=== PATIENT | female | born 1950 | race Caucasian/White ===

== ENCOUNTER 2019-09-29 20:48 | Observation (INO) | payer MEDICARE ==
[~2019-09-29] VITALS: Ht 162.6 cm; Wt 62.7 kg
--- NOTE | ~2019-09-29 | HEMODYNAMI ---
PATIENT:DARIO KLEIN MEDICAL RECORD: [id number] : 50 LOCATION:[address] ADMISSION DATE: 09/29/19 Generatedon:09/30/201915:45 Patient name: DARIO KLEIN Patient #: [id number] : 1950 Date of study: 09/30/2019 Page: Of Hemodynamic Procedure Report Patient Data Patient Demographics Procedure consent was obtained First Name: DARIO Gender: Female Last Name: LATOYA : 1950 Patient #: [id number] Age: 69 year(s) Race: Unknown SSN: [id number] Additional ID: [id number] Contact details Address: [address] [place] [address] State: [place] City: [place] Zip code: [address] Past Medical History Allergies: No known allergies Admission Admission Data Admission Date: 09/29/2019 Admission Time: 22:28 Room #: [facility] Lab Results Lab Result Date: 09/30/2019 Lab Result Time: 0:00 Biochemistry Name Units Result Min Max BUN mg/dl 25 --(----)-* 7 18 Creatinine mg/dl 0.9 --(-*--)-- 0.6 1.3 eGFR ml/min 66 *-(----)-- 90 120 NONAFRICAN CBC Name Units Result Min Max Hemoglobin g/dl 12.4 *-(----)-- 13.5 17.5 Procedure Procedure Types Cath Procedure Diagnostic Procedure C [facility] w/Coronaries Sedation Charges Moderate Sedation up to 30 minutes Procedure Description Procedure Date Procedure Date: 09/30/2019 Procedure Start Time: 15:34 Procedure End Time: 15:42 Procedure Staff Name Function Anibal Mojica MD Performing Physician Slime Mosquera RT Monitor Rachel Ly RT Scrub Lyubov Arcos RN Nurse Procedure Data Cath Procedure Fluoroscopy Diagnostic fluoroscopy Total fluoroscopy Time: 1 time: 1 min min Diagnostic fluoroscopy Total fluoroscopy dose: 131 dose: 131 mGy mGy Contrast Material Contrast Material Type Amount (ml) Isovue 300 36 Entry Location Entry Primary Successful Side Size Upsize Upsize Entry Closure Succes sful Closure Location (Fr) 1 (Fr) 2 (Fr) Remarks Device Remarks Femoral Right 5 Fr Exoseal artery Estimated blood loss: 10 ml Diagnostic catheters Device Type Used For End Catheter Placement MULTIPACK JL 4.0 5Fr Procedure catheter MULTIPACK 3DRC 5Fr Procedure catheter MULTIPACK Pigtail 5 Fr Ventriculography catheter Procedure Complications No complications Procedure Medications Medication Administration Route Dosage 0.9% NaCl I.V. 100 ml/hr Oxygen etCO2 Nasal cannula 2 l/min Lidocaine 2% added to field 20 Heparin Flush Bag added to field 2 bags (1000units/500ml NS) Versed I.V. 2 mg Fentanyl I.V. 50 mcg Versed I.V. 2 mg Fentanyl I.V. 50 mcg Hemodynamics Rest HGB: 12.4 (g/dl) Heart Rate: 76 (bpm) Pressure Samples Time Site Value (mmHg) Purpose Heart Use Rate(bpm) 15:39 LV 115/16,14 Snapshot 74 15:39 AO 109/37(65) Pullback 73 15:39 LV 92/6,8 Pullback 73 Gradients Valve Time Site 1 Site 2 Mean SEP/DFP Peak To Heart Use (mmHg) (sec/min) Peak Rate (mmHg) (bpm) Aortic 15:39 LV AO 0 13 0 73 92/6,8 109/37(65) Calculations Valve P-P Mean Valve Index Valve Source Name Gradient Area Flow (cm2) Aortic 0 0 0 0 Snapshots Pre Cath Intra NCS Post Cath Vital Signs Time Heart Resp SPO2 etCO2 NIBP Rhythm Pain Sedation Rate (ipm) (%) (mmHg) (mmHg) Status Level (bpm) 15:08:41 74 16 100 32.5 112/62(87) NSR 0 (11) 10(A) , No pain 15:12:59 77 18 100 31 111/53(77) NSR 0 (11) 10(A) , No pain 15:17:15 83 16 100 23.6 122/59(88) NSR 0 (11) 10(A) , No pain 15:21:29 65 14 100 22.1 96/57(82) NSR 0 (11) 10(A) , No pain 15:25:39 70 13 97 17 98/52(74) NSR 0 (11) 10(A) , No pain 15:29:53 71 15 100 34.7 106/44(76) NSR 0 (11) 10(A) , No pain 15:34:07 63 16 97 34.8 96/51(70) NSR 0 (11) 10(A) , No pain 15:38:15 70 18 100 13.3 106/59(77) NSR 0 (11) 10(A) , No pain 15:42:30 68 10 95 9.6 98/45(79) NSR 0 (11) 10(A) , No pain Medications Time Medication Route Dose Verified Delivered Reason Notes Eff ectiveness by by 15:09:53 0.9% NaCl I.V. 100 Anibal Lyubov used for ml/hr Galina Isrrael procedure MD ALFRED 15:10:03 Oxygen etCO2 2 Anibal Lyubov [facility]al l[facility] ALFRED 15:10:08 Lidocaine 2% added 20ml Anibal Motaory for local to vial [facility] anesthetic field MD FITZGERALD 15:10:13 Heparin Flush added 2 Anibal Anibal used for Bag to bags [facility] procedure (1000units/500ml field MD FITZGERALD NS) 15:14:43 Versed I.V. 2 mg Anibal Lyubov for Galina Isrrael sedation MD ALFRED 15:14:55 Fentanyl I.V. 50 Anibal Lyubov for mcg GalinaJoaquin Arcos sedation MD ALFRED 15:20:41 Versed I.V. 2 mg Anibal Lyubov for Galina Isrrael sedation MD ALFRED 15:20:51 Fentanyl I.V. [address] [facility] Galina Isrrael sedation MD ALFREDconditioning coach Log Time Note 18:40:47 Report given to Med II. 14:54:07 Diagnostic Cath Status : Urgent 14:56:45 Informed consent obtained and on chart 15:00:16 Risk of Mortality: 1.0 15:00:19 Risk of blood transfusion: 4.3 15:00:24 Risk of SAPPHIRE: 8.1 15:01:06 2) 60-89 Mildly reduced kidney function, and other findings (as for stage 1) point to kidney disease. 15:02:19 Procedure Status Urgent Heart Cath (IP). 15:02:24 Slime Mosquera RT(R) sent for patient. Start room use. 15:02:25 Time tracking: Regular hours (M-F 7:00 - 5:00) 15:02:34 Patient received from Med II to CCL 1 Alert and oriented. Tansferred to table in Supine position. 15:02:35 Warm blankets applied, and ruddy hugger turned on for patient comfort. 15:02:36 Correct patient and procedure confirmed by team. 15:02:37 ECG and BP/O2 sat monitors applied to patient. 15:05:29 H&P Date Dictated: 09/30/2019 Within 30 days and on chart., H&P Addendum completed by physician on day of procedure. (MUST COMPLETE FOR ALL OUTPATIENTS). 15:05:31 Pre-procedure instructions explained to patient. 15:05:33 Family in patients room. 15:05:35 Patient NPO since Midnight. 15:05:43 Patient allergic to No known allergies 15:05:46 Is the patient allergic to Iodine/contrast media? No. 15:05:50 Is patient on blood thinner?No 15:05:54 Patient diabetic? No. 15:05:59 Snore? No 15:06:00 Sleep apnea? No 15:06:06 Dentures? No ? 15:06:11 Patient pain scale 0/10 ?. 15:06:18 IV patent on arrival in left forearm with 0.9% NaCl at [facility]. 15:06:22 Lab results completed and on chart. 15:06:48 Lab Result : Creatinine 0.9 mg/dl 15:06:48 Lab Result : BUN 25 mg/dl 15:06:48 Lab Result : eGFR NONAFRICAN 66 ml/min 15:06:48 Lab Result : Hemoglobin 12.4 g/dl 15:07:00 Stress Test: no; N/A ? 15:07:34 Baseline sample Acquired. 15:07:34 Vital chart was started 15:08:15 Rhythm: unchanged. 15:08:17 Full Disclosure recording started 15:09:53 0.9% NaCl 100 ml/hr I.V. was administered by Lyubov Arcos RN; used for procedure; Verbal order read back and verified. 15:10:03 Oxygen 2 l/min etCO2 Nasal cannula was administered by Lyubov Arcos RN; used for procedure; Verbal order read back and verified. 15:10:08 Lidocaine 2% 20ml vial added to field was administered by Anibal Mojica MD; for local anesthetic; Verbal order read back and verified. 15:10:13 Heparin Flush Bag (1000units/500ml NS) 2 bags added to field was administered by Anibal Mojica MD; used for procedure; Verbal order read back and verified. 15:13:50 Physician paged 15:13:51 Physician arrived 15:13:52 --------ALL STOP TIME OUT------ 15:13:54 Final Timeout: patient, procedure, and site verified with staff and physician. All members of the team are in agreement. 15:14:04 Right groin site verified by team. 15:14:09 Fire Safety Assessment: A--An alcohol-based skin anteseptic being used preoperatively., C--Open oxygen or nitrous oxide is being used., D--An ESU, laser, or fiber-optic light is being used. 15:14:23 Sedation plan: IV Moderate Sedation Medication:Versed, Fentanyl 15:14:31 Use device set Femoral Dx 15:14:33 ACIST Syringe (16994) opened to sterile field. 15:14:34 Bag Decanter (2002S) opened to sterile field. 15:14:34 Medline Cath Pack ([id number]) opened to sterile field. 15:14:36 ACIST Hand Control (11373) opened to sterile field. 15:14:36 ACIST Manifold (43230) opened to sterile field. 15:14:37 DIAGNOSTIC Multipack 5Fr catheter set (VZ9697) opened to sterile field. 15:14:38 Tegaderm 4 x 4 (1626W) opened to sterile field. 15:14:39 SHEATH 5FR Libby (UBC343) opened to sterile field. 15:14:40 EMERALD Guide Wire (677-112) opened to sterile field. 15:14:43 Versed 2 mg I.V. was administered by Lyubov Arcos RN; for sedation; Verbal order read back and verified. 15:14:55 Fentanyl 50 mcg I.V. was administered by Lyubov Arcos RN; for sedation; Verbal order read back and verified. 15:20:41 Versed 2 mg I.V. was administered by Lyubov Isrrael RN; for sedation; Verbal order read back and verified. 15:20:51 Fentanyl 50 mcg I.V. was administered by Lyubov Arcos RN; for sedation; Verbal order read back and verified. 15:34:33 Procedure started. 15:34:47 Local anesthetic to right femoral artery with Lidocaine 2% by Anibal Mojica MD.INITIAL ACCESS ONLY 15:34:58 A 5 Fr sheath was inserted into the Right Femoral artery 15:35:03 J wire advanced. 15:35:14 A MULTIPACK JL 4.0 5Fr catheter was advanced over the wire and used for Procedure. 15:35:24 LCA angiography performed. 15:36:51 Catheter removed. 15:36:59 A MULTIPACK 3DRC 5Fr catheter was advanced over the wire and used for Procedure. 15:38:14 RCA angiography performed. 15:38:17 Catheter removed. 15:38:26 A MULTIPACK Pigtail 5 Fr catheter was advanced over the wire and used for Ventriculography. 15:38:36 LV gram done using IRVING 15:39:53 EF : 55 % 15:39:54 Catheter removed. 15:40:05 Sheath removed intact; hemostasis achieved with Exoseal to the Right Femoral artery. 15:40:07 Procedure ended.(Physican Out) 15:40:19 Fluoroscopy time 01.00 minutes. 15:40:22 Fluoroscopy dose: 131 mGy 15:40:26 Flurop Dose total: 131 15:40:35 Dose Area Product 7619 mGy/cm. 15:40:46 Contrast amount:Isovue 300 36ml. 15:40:49 Maximum allowable dose exceeded? No. 15:40:50 Sharps counted by scrub and verified by R.N. 15:40:52 Insertion/operative site no bleeding no hematoma. 15:40:56 Post-op/insertion site Right Femoral artery dressed using a 4 x 4 and Tegaderm. 15:40:59 EXOSEAL 5Fr (EX500) opened to sterile field. 15:41:06 Post Procedure Pulses reassessed and unchanged 15:41:10 Post-procedure physical assessment completed. ASA score P 2 - A patient with mild systemic disease as per Anibal Mojica MD. 15:41:13 Post procedure rhythm: unchanged. 15:41:17 Estimated blood loss: 10 ml 15:41:19 Post procedure instruction explained to patient.Patient verbalizes understanding. 15:41:43 Procedure type changed to Cath procedure, Diagnostic procedure, LHC, LHC w/Coronaries, Sedation Charges, Moderate Sedation up to 30 minutes 15:41:45 Procedure and supply charges have been captured, reviewed, submitted and are correct. 15:42:04 Procedure Complication : No complications 15:42:07 Vital chart was stopped 15:42:09 [facility] Findings: mild to moderate CAD (<70%) 15:42:12 See physician's report for complete and final results. 15:42:26 Procedure ended. 15:42:26 Full Disclosure recording stopped 15:42:38 End room use (Document Last) 15:44:34 End room use (Document Last) 15:44:59 End room use (Document Last) Device Usage Item Name Manufacture Quantity Catalog Hospital Part Current Minimal L ot# / Number Charge Number Stock Stock Serial# Code ACIST Acist 1 70421 340555 846833 949997 20 Syringe Medical (50335) Systems Inc Bag Microtek 1 804819 52551 191374 5 Decanter Medical Inc. () Medline Medline 1 [id number] 129373 72386 971883 5 Cath Pack ([id number]) ACIST Hand Acist 1 13738 982426 717256 778309 5 Control Medical (89905) Systems Inc ACIST Acist 1 49194 623820 169982 871794 5 Manifold Medical (56317) Systems Inc DIAGNOSTIC Cardinal 1 RY3682 201376 64875 677701 30 Multipack Health 5Fr catheter set (LR1339) Tegaderm 4 3M 1 1626W 025297 243711 220776 5 x 4 (1626W) SHEATH 5FR Terumo 1 NCH686 941771 201969 157592 5 Libby (RTV777) EMERALD Cardinal 1 502-455 908725 700630 047982 5 Guide Wire Health (502-455) MULTIPACK Cardinal 1 347999 5 JL 4.0 5Fr Health catheter MULTIPACK Cardinal 1 074379 5 3DRC 5Fr Health catheter MULTIPACK Cardinal 1 447434 5 Pigtail 5 Health Fr catheter EXOSEAL 5Fr Cardinal 1 EX500 730873 750278 987534 10 (EX500) Health Signature Audit [place] Stage Time Signature Unsigned Intra-Procedure 09/30/2019 Slime Mosquera 3:44:34 PM RT(R) Intra-Procedure 09/30/2019 Lyubov Arcos 3:44:59 PM RN Intra-Procedure 09/30/2019 Anibal Batista 3:45:26 PM Joaquin FITZGERALD [facility] [address] [place] [address]
--- NOTE | ~2019-09-29 | CN ---
PATIENT NAME:DARIO KLEIN MEDICAL RECORD: [id number] : 50 LOCATION:[facility] D.2123 ADMIT DATE: 09/29/19 ACCOUNT: [id number] CONSULTING PHYSICIAN: SHWETA GUIDRY MD REFERRING PHYSICIAN: DARCY HARRIS MD DATE OF CONSULTATION: 09/30/2019 HISTORY OF PRESENT ILLNESS: A 69-year-old female, long-term smoker. No other major illnesses, admitted with chest pressure and tightness, does report effort tolerance over the past week or so, accompanied by nausea, diaphoresis, shortness of breath, radiating to the left jaw. We are asked to see her concerning her cardiovascular status. PAST MEDICAL HISTORY: Unremarkable. MEDICATIONS: None chronically. ALLERGIES: None known. SOCIAL HISTORY: Still sister has been with his business. Smokes about a pack a day, nondrinker. Easily takes care of all her ADLs. REVIEW OF SYSTEMS: The patient reports easy bruising but reports no swollen glands. The patient reports no fever, no night sweats, no significant weight gain, no significant weight loss. No significant exercise tolerance. The patient reports no dry eyes, no irritation, no vision change. Patient reports no difficulty hearing and no ear pain. Patient reports no frequent nose bleeds or nose and sinus problems. Patient reports on arm pain on exertion. No shortness of breath while lying down. No history of heart murmur. Patient reports no cough, no wheezing or coughing up blood. Patient reports no abdominal pain, no vomiting. Normal appetite. No diarrhea and not vomiting blood. No nausea and no constipation. Patient reports no incontinence. No difficulty urinating. No hematuria. No increased frequency. Patient reports no muscle aches. No weakness, no arthralgias, no back pain. No swelling of the extremities. Patient reports no abnormal mole, no jaundice, no rashes. Reports no loss of consciousness. No weakness and no numbness. No seizures, dizziness, or headaches. The patient reports no depression, no sleep disturbance, feeling safe in a relationship and no alcohol abuse. Patient reports on fatigue. Reports no runny nose or sinus pressure. No itching, no hives, and no frequent sneezing. PHYSICAL EXAMINATION: GENERAL: Well-developed, well-nourished female who appears stated age. VITAL SIGNS: Blood pressure 92/35, pulse 68 and regular. HEENT: Normocephalic, atraumatic. NECK: No JVD or bruit. HEART: Regular. LUNGS: Slightly prolonged expiratory phase. ABDOMEN: Soft, nontender. EXTREMITIES: Pulses 2+. No edema. NEUROLOGIC: Grossly intact. DIAGNOSTIC DATA: ECG shows left axis, poor R-wave progression, nonspecific ST-T changes. CONSULT REPORT [id number] DARIO KLEIN IMPRESSION: Acute coronary syndrome. PLAN: Cardiac catheterization. Further recommendations based on the above. TRANSINT:[id number] Voice Confirmation ID: [id number] DOCUMENT ID: [id number] SHWETA GUIDRY MD CC: [id number] DICTATION DATE: 09/30/19940 TOOL DESIGN CHECKER: 09/30/19 1214 ADM IN [place] [id number] [place] [id number]
--- NOTE | ~2019-09-29 | OP ---
PATIENT NAME: DARIO KLEIN MEDICAL RECORD: [id number] :50 LOCATION:D.M2 D.2123 ADMISSION DATE:09/29/19 SURGEON: SHWETA GUIDRY MD DATE OF OPERATION: 09/30/2019 PROCEDURE: Left heart catheterization, selective coronary angiography, right femoral artery approach. CATHETERS: A 5-Nepali sheath, 5/4 left and right Misti, 5/4 pig. The procedure was well tolerated. The patient returned to the [place]. Sheath was removed. Exoseal device placed. FINDINGS: Left ventriculography in 30-degree IRVING view. Normal wall motion. Normal systolic function. CORONARY ANATOMY: LEFT MAIN: Left main is free of disease. LAD: Free of disease in the diagonal system. CIRCUMFLEX: Free of disease in the marginal system. RIGHT CORONARY ARTERY: Dominant artery, gives rise to PDA, free of disease. IMPRESSION: Normal left ventricular systolic function. Normal coronary anatomy. TRANSINT:[id number] Voice Confirmation ID: [id number] DOCUMENT ID: [id number] SHWETA GUIDRY MD CC: [id number] DICTATION DATE: 09/30/19 [address] ATTENDANT: 10/01/19 0252 DIS IN 09/30/19 [facility] [address] [place] [id number]
[2019-09-29 21:11] LABS: BASOPHILS 0.6 % (0-2); EOSINOPHILS 3.1 % (0-7); HEMATOCRIT 38.9 % (36.0-48.0); HEMOGLOBIN 12.9 g/dL (12-16); IMMATURE GRANULOCYTES 0.2 % (0-5); LYMPHOCYTES 45.3 % (15-50); MCHC 33.2 g/dL (31.0-37.0); MCV 96.8 fL (80.0-100.0); MEAN PLATELET VOLUME 9.9 fL (7.4-10.4); MONOCYTES 6.5 % (2-11); NEUTROPHILS 44.3 % (40-80); PLATELET COUNT 235 10x3/uL (130-400); RBC 4.02 10x6/uL (4.00-5.40); RDW 13.1 % (11.5-14.5); WBC 5.2 10x3/uL (4.8-10.8)
[2019-09-29 21:24] LABS: APTT 27.2 SECONDS (22.8-39.4); PROTIME 12.7 SECONDS (11.6-15.0)
[2019-09-29 21:25] LABS: CALC OSMOLALITY 290 mosm/kg (275-300); CALCIUM 8.3 mg/dL (8.5-10.1); CARBON DIOXIDE 26.4 mmol/L (21.0-32.0); CHLORIDE - SERUM 107 mmol/L (98-107); CREATININE - SERUM 0.9 mg/dL (0.6-1.3); GLUCOSE 104 mg/dL (74-106); POTASSIUM - SERUM 3.9 mmol/L (3.5-5.1); SODIUM 144 mmol/L (136-145); UREA NITROGEN 25 mg/dL (7-18); eGFR NON AFRICAN AMERICAN 66 mL/min (90-120)
[2019-09-29 21:33] VITALS: BP 107/48
[2019-09-29 21:39] LABS: ALBUMIN 3.4 g/dL (3.4-5.0); ALKALINE PHOSPHATASE 86 U/L (46-116); ALT (SGPT) 27 U/L (10-68); BILIRUBIN - TOTAL 0.16 mg/dL (0.2-1.3); CKMB 0.7 U/L (0.0-3.6); CREATINE KINASE 74 UL (21-215); MAGNESIUM - SERUM 2.4 mg/dL (1.8-2.4); PRO BNP 322 pg/mL (0-125); PROTEIN - SERUM 6.1 g/dL (6.4-8.2); TROPONIN-I < 0.017 ng/mL (0.000-0.060)
[2019-09-29 22:03] LABS: MCH 32.2 pg (26.0-34.0)
--- NOTE | 2019-09-29 23:28 | NUR ---
RECIEVED TO ROOM 2122 FROM ER VIA . PT A&O. RESPERATIONS EVEN ON RA. IV TO LEFT WRIST SL, IV SITE CLEAN AND DRY. HISTORY AND MED REC OBTAINED. PLACED ON TELEMETRY, 68 SR. PT CURRENTLY DENIES PAIN OR NEEDS, BED LOW, CL IN REACH.
[2019-09-29 23:35] VITALS: Ht 162.6 cm; Wt 62.7 kg
[2019-09-30] VITALS: BP 92/35
--- NOTE | 2019-09-30 01:23 | NUR ---
I have reviewed this patient and I concur with the Shift Assessment completed by the Licensed Practical Nurse today this shift.
[2019-09-30 04:30] VITALS: BP 87/38
--- NOTE | 2019-09-30 07:34 | NUR ---
ALERT AND ORIENTED. TELEMERTY SHOWS SR. LEFT WRIST SL. UP AB RIVERA. DENIES ANY NEEDS AT PRESENT TIME. CALL LIGHT IN REACH WITH SR UP. WILL MONITOR.
--- NOTE | 2019-09-30 08:30 | NUR ---
I have reviewed this patient and I concur with the Shift Assessment completed by the Licensed Practical Nurse today this shift.
[2019-09-30 08:31] VITALS: BP 91/43
[2019-09-30 08:37] LABS: HEMOGLOBIN 12.4 g/dL (12-16); MCHC 32.6 g/dL (31.0-37.0); MCV 97.9 fL (80.0-100.0); MEAN PLATELET VOLUME 10.7 fL (7.4-10.4); PLATELET COUNT 250 10x3/uL (130-400); RBC 3.88 10x6/uL (4.00-5.40); RDW 13.5 % (11.5-14.5); WBC 4.7 10x3/uL (4.8-10.8)
[2019-09-30 08:43] LABS: ANION GAP 16.7 mmol/L (8-16); CALCIUM 8.3 mg/dL (8.5-10.1); CARBON DIOXIDE 22.1 mmol/L (21.0-32.0); CHOL - HDL RATIO 4.9 ratio (2.3-4.1); CREATININE - SERUM 0.9 mg/dL (0.6-1.3); LDL-HDL RATIO 2.5 ratio (1.5-3.5); POTASSIUM - SERUM 3.8 mmol/L (3.5-5.1)
[2019-09-30 10:31] LABS: BASOPHILS 2 % (0-2); EOSINOPHILS 1 % (0-7); LYMPHOCYTES 52 % (15-50); MONOCYTES 6 % (2-11); NEUTROPHILS 37 % (40-80); PLATELET ESTIMATE NORMAL
[2019-09-30 12:11] VITALS: BP 110/53
--- NOTE | 2019-09-30 14:06 | NUR ---
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
--- NOTE | 2019-09-30 16:17 | NUR ---
BACK FOM MANUFACTURING QUALITY INSPECTOR. RIGHT GROIN SOFT WITH DRSG DRY AND INTACT. PPP. TELEMERTY SHOWS SR 68. V/S STABLE. FAMILY AT BEDSIDE.SR UP WITH CALL LIGHT IN REACH
--- NOTE | 2019-09-30 16:38 | NUR ---
LYING QUIETLY. RIGHT GROIN SOFT WITH DRSG DRY AND INTACT.PPP. NO NEEDS VOICED. SR UP WITH CALL LIGHT IN REACH
--- NOTE | 2019-09-30 18:15 | NUR ---
PT DISCHARGED. IV DCD WITH TIP INTACT.INSTRUCTIONS GIVEN TO PT AND SPOUSE. RIGHT GROIN SOFT WITH NO SWELLING OR BLEEDING. TO PRIVETE CAR PER WHEELCHAIR
--- NOTE | 2019-10-01 09:06 | MORECARE ---
CASE MANAGEMENT DISCHARGE SUMMARY PATIENT: DARIO KLEIN UNIT: [id number] ADM DATE: 09/29/19 AGE: 69 : 50 SEX: F ROOM/BED: D.7003 AUTHOR: CARIN FARIAS PHYSICIAN: REFERRING PHYSICIAN: DARCY HARRIS MD DATE OF SERVICE: 10/01/19 Discharge Plan Patient Name: DARIO KLEIN Facility: [facility]:[place] : 1950 Planned Disposition: Home Anticipated Discharge Date: 09/30/19 Discharge Date: 09/30/2019 Expected LOS: 1 Initial Reviewer: [email or web address] Initial Review Date: 10/01/2019 Generated: 10/01/19 10:06 am Patient Name: DARIO KLEIN Page [id number] at 0906 All edits/amendments must be made on the electronic document DICTATION DATE: 10/01/19905 MICROSTRATEGY ARCHITECT: COURTNEY 10/01/19905 RPT#: [id number] DC DATE:09/30/19 STATUS: DIS IN [facility] [address] [place] [address] END OF REPORT
== END 2019-09-30 18:22 | disposition home or self-care (01) ==
LOC: D.ER 20:48 → D.M2 22:28 → OBSVTIME 22:28 → D.M2 09-30 18:22
PROVIDERS: Family Medicine; Internal Medicine Interventional Cardiology; ADMIT Family Medicine; ATTEND Family Medicine
DX: I24.9 Acute ischemic heart disease, unspecified (principal); F17.200 Nicotine dependence, unspecified, uncomplicated; R07.9 Chest pain, unspecified